=== PATIENT | female | born 1940 | race Caucasian/White ===

== ENCOUNTER 2021-01-17 09:31 | Day surgery (SDC) | payer MEDICARE, OTHER ==
[~2021-01-17] VITALS: Ht 165.1 cm; Wt 72.7 kg
[~2021-01-17 09:31] MED LIST: SODIUM CHLORIDE 0.9% 1,000 ML ONE
[2021-01-17] MEDS ORDERED: LIDOCAINE/PF 2% 5 ML SYRINGE IVP ONE (09:32)
[2021-01-17] MEDS ORDERED: PROPOFOL 1% 20 ML VIAL IVP ONE (09:32)
[2021-01-17] MEDS ORDERED: MIDAZOLAM HCL 2 MG/2 ML VIAL IVP ONE (09:32)
[2021-01-17] MEDS ORDERED: FentaNYL CITRATE PF 100 MCG/2 ML VIAL IVP ONE (09:32)
[2021-01-17 09:59] LABS: COVID AG,FIA SOURCE NASAL SWAB
[2021-01-17] MEDS ORDERED: RINGERS SOLUTION,LACTATED 500 ML IV ONE (10:00)
[2021-01-17 11:34] LABS: GLUCOMETER DEV NAME(LOC) SDS.; GLUCOSE,POINT OF CARE 109 MG/DL (70-110)
[2021-01-17] MEDS ORDERED: LIDOCAINE/PF 1% 2 ML VIAL ONE (11:46)
[2021-01-17] MEDS ORDERED: HYALURONIDASE, HUMAN RECOMB. 150 UNITS/ML ONE (11:46)
[2021-01-17] MEDS ORDERED: BUPIVACAINE HCL/PF 0.75% 10 ML VIAL ONE (11:46)
[2021-01-17] MEDS ORDERED: NEOMYCIN/POLYMYXIN B/DEXAMETH 3.5 GM OPHTHALMIC OINTMENT ONE (12:06)
[2021-01-17] MEDS ORDERED: POTA-92 PO (12:20)
[2021-01-17] MEDS ORDERED: SERT-158 PO (12:20)
[2021-01-17] MEDS ORDERED: METO25 PO (12:20)
[2021-01-17] MEDS ORDERED: METF-960 PO (12:20)
== END 2021-01-17 13:55 | disposition home or self-care (01) ==
LOC: SURGERY 09:31
PROVIDERS: ATTEND Ophthalmology
DX: E11.39 Type 2 diabetes mellitus with other diabetic ophthalmic complication (principal); H40.10X2 Unspecified open-angle glaucoma, moderate stage; I10 Essential (primary) hypertension; Z20.822 Contact with and (suspected) exposure to COVID-19; Z98.890 Other specified postprocedural states; Z79.899 Other long term (current) drug therapy
CPT/HCPCS: 66710; 82962; 87426; 93005; C9803; J2250; J2704; J3010; J3473; J3490 ×3; J7030